=== PATIENT | female | born 1970 | race Caucasian/White ===

== ENCOUNTER 2017-06-27 18:50 | Observation (INO) ==
--- NOTE | 2017-06-27 19:32 | Emergency Department Note ---
Disposition Clinical Impression: Rectal bleed, Anemia Disposition: Admitted As Inpatient Condition: Good Time of Disposition: 21:31 (tab colev [facility] thumb region) Abdominal Pain HPI - General Chief Complaint: ED Abdominal Pain Stated Complaint: abdominal pain, rectal pain Time Seen by Provider: 06/27/17 19:00 Source: patient Mode of arrival: ambulatory Limitations: no limitations Nursing Notes Reviewed: Yes Vital Signs Reviewed: Yes - History of Present Illness HPI Narrative: Patient has been scoped previously by Dr. Coleman for rectal bleeding and a history of anemia comes emergency room after reportedly having rectal bleeding today says that she had a third of a couple blood in the toilet states that she had abdominal cramping which is then followed by bright red blood she is been doing this off and on for the past couple days today though she said the blood was low but darker in color she has had no history of diverticular disease she has had no history of colon cancer or colon polyps she denies any epigastric pain or discomfort states that she has some cramping in the rectal region she denies fever chills N this dizziness numbness tingling or weakness recent weight gain or weight loss Pt Subjective Complaint: abdominal pain Onset (ago): day(s) Consistency: intermittent Location: suprapubic Pain Severity: moderate, severe Pain Scale: 7 Quality: cramping Radiation: none Migration to: no migration Improves with: nothing Worsens with: nothing Context: history of similar episodes Associated symptoms: Reports: hematochezia. Denies: nausea, vomiting, diarrhea , fever, chills, constipation, dysuria, hematemesis, melena, hematuria, anorexia Treatments prior to arrival: none - Related Data Home Medications Medication Instructions Recorded Confirmed Albuterol Sulfate [Proair Hfa] 2 puff IH Q4H PRN 02/14/16 06/27/17 Buspirone HCl [Buspar] 10 mg PO TID 09/27/16 06/27/17 Venlafaxine XR (24 HR) [Effexor Xr] 300 mg PO DAILY 09/27/16 06/27/17 ALPRAZolam [Xanax 1 MG Tablet] 1 mg PO TID PRN 12/06/16 06/27/17 Tiotropium Br/Olodaterol HCl 2 puff IH DAILY 12/06/16 06/27/17 [Stiolto Respimat Inhal [place]] Lidocaine 1 patch TD DAILY PRN 01/09/17 06/27/17 Trazodone HCl 100 - 200 mg PO HS 01/09/17 06/27/17 metFORMIN [Glucophage] 1,000 mg PO BID 01/09/17 06/27/17 Fluticasone Propionate [Flovent 1 puff IH BID 03/24/17 06/27/17 Hfa] Gabapentin [Neurontin] 600 mg PO BID 03/24/17 06/27/17 Metoprolol [Lopressor] 25 mg PO DAILY 03/24/17 06/27/17 Omeprazole [PriLOSEC] 40 mg PO DAILY 03/24/17 06/27/17 Topiramate [Topamax] 25 mg PO BID 03/24/17 04/19/17 Previous Rx's Medication Instructions Recorded Ipratropium/Albuterol Neb [Duoneb] 3 ml IH Q6H PRN #100 inhsol 02/15/16 Atorvastatin [Lipitor] 40 mg PO HS #30 tablet 04/11/16 Aspirin 81 mg PO DAILY #30 tab.chew 06/29/17 Acetaminophen [Tylenol] 1,000 mg PO TID #30 tablet 07/03/17 Albuterol Sulfate [Albuterol 2 puff IH Q4HR #1 hfa.aer.ad 07/03/17 Inhaler] GuaiFENesin ER [Mucinex] 600 mg PO BID #10 tbbp.12hr 07/03/17 Ondansetron [Zofran] 8 mg PO Q8HR #9 tablet 07/03/17 predniSONE [Prednisone] 50 mg PO DAILY #5 tablet 07/03/17 Allergies Allergy/AdvReac Type Severity Reaction Status Date / Time clindamycin Allergy Hives Verified 06/27/17 19:06 codeine Allergy Difficulty Verified 06/27/17 19:06 Breathing NSAIDS (Non-Steroidal Allergy Difficulty Verified 06/27/17 19:06 Anti-Inflamma Breathing ketorolac [From Toradol] AdvReac Migraine Verified 06/27/17 19:06 tramadol AdvReac Vomiting Verified 06/27/17 19:06 codeine Allergy Unknown Difficulty Uncoded 06/27/17 19:06 Breathing nsaids Allergy Unknown Difficulty Uncoded 06/27/17 19:06 Breathing All systems ED: reviewed and negative except as stated. Review of Systems: As Per HPI Constitutional: Denies: fever, chills, weakness Eyes: Denies: eye pain, eye discharge ENT ED: Denies: ear pain, throat pain Cardiovascular: Denies: chest pain, palpitations Respiratory: Denies: cough, dyspnea Gastrointestinal: Reports: abdominal pain, hematochezia. Denies: nausea, vomiting, diarrhea Genitourinary: Denies: urgency, dysuria, frequency Musculoskeletal: Denies: back pain, neck pain Integumentary: Denies: rash, abrasion Neurological: Denies: headache, weakness Psychiatric: Denies: anxiety, depression Endocrine: Denies: fatigue Hematological/Lymphatic: Denies: easy bleeding Allergic/Immunologic: Denies: facial swelling Abdominal Pain PMH - Past Medical History Medical history: Reports: arthritis, asthma, CHF, COPD, coronary artery disease , diabetes, GERD, hyperlipidemia, hypertension, pulmonary embolus, other Female Surgical History: Reports: orthopedic, 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: polycystic ovary syndrome Psychiatric history: Reports: anxiety, depression - Social History Smoking status: Current every day smoker Alcohol use: Reports: none Drug use: Reports: none Physical Exam - General Limitations: no limitations General appearance: alert, in no apparent distress, obese - Head Head exam: atraumatic, normocephalic, normal inspection - Eye Eye exam: Present: normal appearance, PERRL, EOMI - ENT ENT exam: normal exam, normal oropharynx, mucous membranes moist, normal external ear exam - Neck Neck exam: Present: normal inspection, full ROM, trachea midline - Chest Chest inspection: Present: normal inspection, symmetric chest wall rise - Respiratory Respiratory exam: Present: normal lung sounds bilaterally - Cardiovascular Cardiovascular exam: Present: regular rate, normal rhythm, normal heart sounds - Abdominal Exam Abdominal exam: Present: soft, Non-Tender, normal bowel sounds. Absent: mass, pulsatile mass - Rectal Exam Refractory Manager present during exam: Yes Rectal exam: Present: normal inspection, heme (+) stool, hemorrhoids, other ( dark stool) - Extremities Exam Extremities exam: Present: normal inspection, full ROM, normal capillary refill. Absent: tenderness, pedal edema, joint swelling, calf tenderness - Expanded Lower Extremity Exam Neurovascular/Tendon exam: Present: normal capillary refill, normal fine/light touch Gait: observed and normal - Back Exam Back exam: Present: normal inspection, full ROM. Absent: muscle spasm - Neurological Exam Neurological exam: Present: alert, oriented X3, CN II-XII intact, normal gait - Psychiatric Psychiatric exam: Present: normal affect, normal mood - Skin Skin exam: Present: warm, dry, intact, normal color, rash Course Course Narrative: Patient seen and examined patient continued complaining of some abdominal cramping was given a shot of Bentyl which did seem to help patient was then transferred to [facility] for serial H&H's to make sure that her hemoglobin did not drop any farther almost likely need follow-up with endoscopy per Dr. Cervantes who has done her endoscopy in the past No rectal bleeding in the stool Vital Signs Temperature 97.2 F L 06/27/17 18:52 Pulse Rate 91 06/27/17 18:52 Respiratory Rate 17 06/27/17 18:52 Blood Pressure 122/81 06/27/17 18:52 O2 Sat by Pulse Oximetry 97 06/27/17 18:52 Temperature 97.5 F L 06/29/17 07:40 Pulse Rate 76 06/29/17 07:40 Respiratory Rate 16 06/29/17 07:40 Blood Pressure 159/63 06/29/17 07:40 O2 Sat by Pulse Oximetry 95 06/29/17 07:40 Oxygen Delivery Oxygen Delivery Room Air Abdominal Pain - Differential Diagnosis Differential Diagnosis: Likely: abdominal pain non-specific, other (Rectal bleeding hemorrhoid fissure fistula and diverticular disease) - Medical Records Medical records reviewed: Yes I reviewed the patient's medical records. - Lab Data Lab results reviewed: Yes I reviewed the patient's lab results. Result diagrams: 06/29/17 05:49 06/28/17 04:43 Lab Results 06/27/17 06/27/17 06/27/17 Range/Units 19:39 19:39 19:39 WBC 11.1 (4.3-11.1) K/mcL RBC 3.85 (3.82-4.97) M/mcL Hgb 10.9 L (11.5-15.4) g/dL Hct 33.8 L (35.3-44.9) % MCV 87.8 (83.0-100.0) fL MCH 28.3 (28.0-33.3) pg MCHC 32.2 (31.6-35.5) g/dL RDW 13.8 (11.5-14.5) % Plt Count 369 (140-400) K/mcL MPV 9.5 (9.4-12.4) fL Immature Gran % 0.4 (0-4) % Seg Neutrophils % 70.3 % Lymphocytes % 23.2 % Monocytes % 4.5 % Eosinophils % 1.3 % Basophils % 0.3 % Neutrophils # 7.8 (1.6-8.9) K/mcL Lymphocytes # 2.6 (0.6-4.6) K/mcL Monocytes # 0.5 (0.0-1.3) K/mcL Eosinophils # 0.1 (0.0-0.6) K/mcL Basophils # 0.0 (0.0-0.2) K/mcL PT 10.4 (9.4-12.1) Seconds INR 1.0 APTT 28.3 (26.0-36.0) Seconds Sodium 137 (136-145) mEq/L Potassium 3.9 (3.5-5.1) mEq/L Chloride 101 (98-107) mEq/L Carbon Dioxide 27 (23-29) mEq/L BUN 10 (6-20) mg/dL Creatinine 0.75 (0.60-1.20) mg/dL Est GFR ( Amer) > 60 (> 60) Est GFR (Non-Af Amer) > 60 (> 60) BUN/Creatinine Ratio 13 (6-26) Glucose 195 H (70-105) mg/dL Calculated Osmolality 288 (280-300) Calcium 9.3 (8.6-10.3) mg/dL Total Bilirubin 0.2 L (0.3-1.0) mg/dL AST 20 (13-39) Units/L ALT 26 (7-52) Units/L Alkaline Phosphatase 124 H (34-104) Units/L Serum Total Protein 6.9 (6.4-8.9) g/dL Albumin 3.9 (3.5-5.7) g/dL Globulin 3.0 (2.4-3.5) g/dL Albumin/Globulin Ratio 1.3 (1.1-2.2) Stool Occult Blood (Negative) 06/27/17 Range/Units 22:00 WBC (4.3-11.1) K/mcL RBC (3.82-4.97) M/mcL Hgb (11.5-15.4) g/dL Hct (35.3-44.9) % MCV (83.0-100.0) fL MCH (28.0-33.3) pg MCHC (31.6-35.5) g/dL RDW (11.5-14.5) % Plt Count (140-400) K/mcL MPV (9.4-12.4) fL Immature Gran % (0-4) % Seg Neutrophils % % Lymphocytes % % Monocytes % % Eosinophils % % Basophils % % Neutrophils # (1.6-8.9) K/mcL Lymphocytes # (0.6-4.6) K/mcL Monocytes # (0.0-1.3) K/mcL Eosinophils # (0.0-0.6) K/mcL Basophils # (0.0-0.2) K/mcL PT (9.4-12.1) Seconds INR APTT (26.0-36.0) Seconds Sodium (136-145) mEq/L Potassium (3.5-5.1) mEq/L Chloride (98-107) mEq/L Carbon Dioxide (23-29) mEq/L BUN (6-20) mg/dL Creatinine (0.60-1.20) mg/dL Est GFR ( Amer) (> 60) Est GFR (Non-Af Amer) (> 60) BUN/Creatinine Ratio (6-26) Glucose (70-105) mg/dL Calculated Osmolality (280-300) Calcium (8.6-10.3) mg/dL Total Bilirubin (0.3-1.0) mg/dL AST (13-39) Units/L ALT (7-52) Units/L Alkaline Phosphatase (34-104) Units/L Serum Total Protein (6.4-8.9) g/dL Albumin (3.5-5.7) g/dL Globulin (2.4-3.5) g/dL Albumin/Globulin Ratio (1.1-2.2) Stool Occult Blood Positive A (Negative) - Radiology Data Radiology results reviewed: Yes I reviewed the patient's radiology results. ITS Impressions Abdomen/Pelvis CT 06/27/17 19:31 IMPRESSION: Stable CT examination. No CT evidence for acute intra- abdominal process. D/ / Zechariah Gardner / Zechariah Gardner Interpreting Provider: Zechariah Gardner Critical Care Time Critical Care Time: No
[2017-06-27 19:44] LABS: Basophils % 0.3 %; Eosinophils # 0.1 K/mcL (0.0-0.6); Eosinophils % 1.3 %; Hematocrit 33.8 % (35.3-44.9); Hemoglobin 10.9 g/dL (11.5-15.4); Immature Granulocytes % 0.4 % (0-4); Lymphocytes # 2.6 K/mcL (0.6-4.6); Lymphocytes % 23.2 %; Mean Corpuscular HGB Conc 32.2 g/dL (31.6-35.5); Mean Corpuscular Hemoglobin 28.3 pg (28.0-33.3); Mean Corpuscular Volume 87.8 fL (83.0-100.0); Mean Platelet Volume 9.5 fL (9.4-12.4); Monocytes # 0.5 K/mcL (0.0-1.3); Monocytes % 4.5 %; Neutrophils # 7.8 K/mcL (1.6-8.9); Platelet Count 369 K/mcL (140-400); Red Blood Count 3.85 M/mcL (3.82-4.97); Red Cell Distribution Width 13.8 % (11.5-14.5); Segmented Neutrophils % 70.3 %
[2017-06-27 19:51] LABS: Prothrombin Time 10.4 Seconds (9.4-12.1)
[2017-06-27 19:53] LABS: Activated Partial Thrombo Time 28.3 Seconds (26.0-36.0)
[2017-06-27 20:06] LABS: Alanine Aminotransferase 26 Units/L (7-52); Albumin 3.9 g/dL (3.5-5.7); Albumin/Globulin Ratio 1.3 (1.1-2.2); Alkaline Phosphatase 124 Units/L (34-104); Aspartate Amino Transferase 20 Units/L (13-39); BUN/Creatinine Ratio 13 (6-26); Bilirubin,Total 0.2 mg/dL (0.3-1.0); Blood Urea Nitrogen 10 mg/dL (6-20); Calcium 9.3 mg/dL (8.6-10.3); Carbon Dioxide 27 mEq/L (23-29); Chloride 101 mEq/L (98-107); Glucose 195 mg/dL (70-105); Osmolality,Calculated 288 (280-300); Potassium 3.9 mEq/L (3.5-5.1); Sodium 137 mEq/L (136-145); Total Protein 6.9 g/dL (6.4-8.9); eGFR For Non-African Americans > 60 (> 60)
[2017-06-27] MEDS ORDERED: Ondansetron ODT 4 MG TAB.RAPDIS SL ONE (20:10)
[2017-06-27] MEDS ORDERED: Dicyclomine 20 MG/2 ML AMPUL IM ONE (20:39)
[2017-06-27] MEDS ORDERED: *HR* OxyCODONE Immed Rel 5 MG TABLET PO STA (22:15)
[2017-06-27] MEDS ORDERED: *HR* OxyCODONE Immed Rel 5 MG TABLET PO ONE (23:16)
[2017-06-27] MEDS ORDERED: OXYCODONE Oral CONC 10 MG/0.5 ML ORAL.SYG SL PRN (23:16)
[2017-06-27] MEDS ORDERED: Naloxone 0.4 MG/ML INJ IVP PRN (23:16)
[2017-06-27] MEDS: ALPRAZolam 1 MG TABLET PO PRN (23:47)
[2017-06-27] MEDS: 0.9 % Sodium Chloride 1,000 ML IVC SCH (23:47)
[2017-06-28 05:08] LABS: Basophils % 0.2 %; Eosinophils # 0.2 K/mcL (0.0-0.6); Eosinophils % 1.8 %; Immature Granulocytes % 0.4 % (0-4); Lymphocytes # 2.9 K/mcL (0.6-4.6); Lymphocytes % 30.8 %; Mean Corpuscular HGB Conc 31.4 g/dL (31.6-35.5); Mean Corpuscular Volume 89.1 fL (83.0-100.0); Mean Platelet Volume 9.6 fL (9.4-12.4); Monocytes # 0.5 K/mcL (0.0-1.3); Monocytes % 5.5 %; Neutrophils # 5.8 K/mcL (1.6-8.9); Platelet Count 370 K/mcL (140-400); Red Blood Count 3.93 M/mcL (3.82-4.97); Red Cell Distribution Width 13.8 % (11.5-14.5); Segmented Neutrophils % 61.3 %
[2017-06-28 05:20] LABS: Prothrombin Time 11.1 Seconds (9.4-12.1)
[2017-06-28 05:22] LABS: Activated Partial Thrombo Time 27.8 Seconds (26.0-36.0)
[2017-06-28 05:32] LABS: BUN/Creatinine Ratio 12 (6-26); Blood Urea Nitrogen 10 mg/dL (6-20); Calcium 9.2 mg/dL (8.6-10.3); Carbon Dioxide 30 mEq/L (23-29); Chloride 101 mEq/L (98-107); Glucose 210 mg/dL (70-105); Osmolality,Calculated 291 (280-300); Potassium 4.2 mEq/L (3.5-5.1); Sodium 138 mEq/L (136-145); eGFR For Non-African Americans > 60 (> 60)
[2017-06-28] MEDS: *HR* OxyCODONE Immed Rel 5 MG TABLET PO PRN ×6 (05:47→23:10)
[2017-06-28] MEDS: Ondansetron 4 MG/2 ML VIAL IVP PRN ×2 (06:22→20:04)
[2017-06-28] MEDS ORDERED: Aspirin 81 MG TAB.CHEW PO SCH (09:00)
[2017-06-28] MEDS ORDERED: Patient Taking Own Medication 1 EACH IH SCH (09:00)
[2017-06-28] MEDS: 0.9 % Sodium Chloride 1,000 ML IVC SCH (09:37)
[2017-06-28] MEDS: Gabapentin 300 MG CAPSULE PO SCH ×2 (09:38→19:51)
[2017-06-28] MEDS: *HR* Metformin 500 MG TABLET PO SCH ×2 (09:38→16:50)
[2017-06-28] MEDS: Venlafaxine XR (24 HR) 150 MG CAP.ER.24H PO SCH (09:39)
[2017-06-28] MEDS: Fluticasone Propionate Nasal 50 MCG/SPRAY BOTTLE NS SCH ×2 (09:48→22:11)
[2017-06-28] MEDS ORDERED: Fluticasone Propionate Nasal 50 MCG/SPRAY BOTTLE NS SCH (10:00)
[2017-06-28] MEDS ORDERED: *HR* OxyCODONE Immed Rel 5 MG TABLET PO PRN (12:50)
[2017-06-28] MEDS: Ipratropium/Albuterol Neb 3 ML IH PRN (12:51)
[2017-06-28] MEDS: ALPRAZolam 1 MG TABLET PO PRN ×2 (13:23→19:51)
--- NOTE | 2017-06-28 14:14 | Internal Med History&Physical ---
Date of Encounter: 06/28/17 Time of Encounter: 12:25 Assessment and Plan (1) Hematochezia Current visit: Yes Status: Acute Source not determined at this time. I told her in view of normal CT scan in the emergency room and unremarkable colonoscopy approximately 2 months ago I suspect it was a nonmalignant source of bleeding such as hemorrhoid or mucosal oozing. Will recheck labs in a.m. Anticipate discharge home tomorrow if stable. Internal Medicine - H&P: HPI Chief complaint: Rectal bleeding Admitted From: Emergency Dept Plans for Post Hospital Care: Home History of present illness: Ms. Castro is a 47 year old female who came to emergency room stating she had a significant amount of bright red blood in bowel movements over the preceding hours. She had a sharp/stabbing abdominal discomfort. She had nausea but no vomiting or diarrhea. She is evaluated in emergency room and admitted to [facility] floor for ongoing care needs. She reports she has history of GI blood loss. She had EGD and colonoscopy 04/11 for iron deficiency anemia evaluation. No significant findings were found to explain the blood loss. Her GI history is pertinent otherwise for no other disorders of liver or gallbladder or exocrine pancreas. She does have GERD. Past Med Surg Social Fam HX - Past Medical History Medical history: arthritis, asthma, CHF, COPD, coronary artery disease, diabetes , GERD, hyperlipidemia, hypertension, pulmonary embolus, other Psychiatric history: anxiety, depression - Past Surgical History Surgical History: orthopedic, other - Social History Smoking Status: Current every day smoker Packs per day: 6 to 8 cigarettes Smokeless Tobacco Status: No Alcohol use: none Drug use: none - Family History Mother Adopted: No Family Member Ethnicity: Non- Living Status: Still Living Hx Family Cardiac Disorders: Yes Hx Family Respiratory Disorders: No Hx Family Cancer: No Hx Family GI Disorders: No Hx Family Endocrine Disorder: Yes (DM) Hx Family Neuromuscular Disorders: No Hx Family Neurologic Disorders: No Hx Family HEENT Disorders: No Hx Family Autoimmune Disorders: Yes Father Adopted: No Family Member Ethnicity: Non- Living Status: Still Living Hx Family Cardiac Disorders: Yes (HTN) Hx Family Respiratory Disorders: No Hx Family Cancer: No Hx Family GI Disorders: No Hx Family Endocrine Disorder: Yes (DM) Hx Family Neuromuscular Disorders: Yes (ALZHEIMERS) Hx Family Neurologic Disorders: Yes (Alzheimers) Hx Family HEENT Disorders: No Hx Family Autoimmune Disorders: No Internal Medicine - H&P: Meds Albuterol Sulfate [Proair Hfa] 2 puff IH Q4H PRN 02/14/16 [History] Ipratropium/Albuterol Neb [Duoneb] 3 ml IH Q6H PRN #100 inhsol 02/15/16 [Rx] Aspirin 81 mg PO DAILY #30 tab.chew 04/11/16 [Rx] Atorvastatin [Lipitor] 40 mg PO HS #30 tablet 04/11/16 [Rx] Buspirone HCl [Buspar] 10 mg PO TID 09/27/16 [History] Venlafaxine XR (24 HR) [Effexor Xr] 300 mg PO DAILY 09/27/16 [History] ALPRAZolam [Xanax 1 MG Tablet] 1 mg PO TID PRN 12/06/16 [History] Tiotropium Br/Olodaterol HCl [Stiolto Respimat Inhal [place]] 2 puff IH DAILY 04/14 [History] Lidocaine 1 patch TD DAILY PRN 01/09/17 [History] Trazodone HCl 100 - 200 mg PO HS 01/09/17 [History] metFORMIN [Glucophage] 1,000 mg PO BID 01/09/17 [History] Fluticasone Propionate [Flovent Hfa] 1 puff IH BID 03/24/17 [History] Gabapentin [Neurontin] 600 mg PO BID 03/24/17 [History] Metoprolol [Lopressor] 25 mg PO DAILY 03/24/17 [History] Omeprazole [PriLOSEC] 40 mg PO DAILY 03/24/17 [History] Topiramate [Topamax] 25 mg PO BID 03/24/17 [History] 3 Allergy/AdvReac Type Severity Reaction Status Date / Time clindamycin Allergy Hives Verified 06/27/17 19:06 codeine Allergy Difficulty Verified 06/27/17 19:06 Breathing NSAIDS (Non-Steroidal Allergy Difficulty Verified 06/27/17 19:06 Anti-Inflamma Breathing ketorolac [From Toradol] AdvReac Migraine Verified 06/27/17 19:06 tramadol AdvReac Vomiting Verified 06/27/17 19:06 codeine Allergy Unknown Difficulty Uncoded 06/27/17 19:06 Breathing nsaids Allergy Unknown Difficulty Uncoded 06/27/17 19:06 Breathing All Systems PM: A 10-system review of systems was performed and is negative for pertinent findings except as documented above in the HPI. Review of systems: Gen.: She states her weight has been stable past few months Cardiovascular: She has history of hypertension. She claims a diagnosis of CHF but an echocardiogram 12/06/2016 showed LVEF 60-65% with indeterminate diastolic function and no significant valvular abnormality seen. She claims she had a pulmonary embolism 2014 and was on Xarelto briefly. The etiology of the PE was not determined to her knowledge. Respiratory: She has smoked since age 16 up to 1 pack per day. She had PFTs 02/2017 which showed FEV1/FVC of 85%. The FVC was 65% of predicted. There was improvement in FEV1 postbronchodilator. Her MVV was decreased to 59% predicted. Residual volume was elevated 128% predicted. DLCO corrected was 64% . She has a diagnosis of BESSIE and wears BiPAP at at bedtime GI: As per history of present illness : She denies hematuria dysuria or kidney stones Neurologic: She denies large distribution strokes or seizures. Endocrine: She was diagnosed with DM 2 approximately 2013. She has hyperlipidemia but denies thyroid disease Hematology/oncology: She has history of anemia. She denies internal malignancies or other blood disorders Psychiatric: She has anxiety and depression but denies other mental health issues Muscle skeletal: She denies arthritis gout or other bone joint or muscle disorders. - Constitutional Vitals: Temp Pulse Resp BP Pulse Ox 98.4 F 64 18 107/66 97 06/28/17 10:41 06/28/17 10:41 06/28/17 12:53 06/28/17 10:41 06/28/17 12:53 Exam: General: She is a well-developed obese female lying in bed who appears in no severe distress. She does appear anxious. HEENT: Head is atraumatic and normal cephalic. Eyes: EOMI. There is no scleral icterus. Mouth: Mucosa is moist. Neck: Supple and nontender. There is no thyromegaly or adenopathy noted. Heart: Regular without murmurs gallops or ectopics Lungs: No wheezes or crackles are heard. Abdomen: Soft and nontender. She has a large abdomen. No masses or guarding are noted. Extremities: There is no cyanosis edema or clubbing noted. Dorsalis pedis and posterior tibial pulses are trace to 1+ palpable bilaterally. Neurologic: Mental status: She is talkative and a good historian. Cranial nerves: Smile is symmetric. Forehead wrinkles bilaterally. Tongue protrudes midline. EOMI. Motor: There is no pronator drift. Cerebellar: Finger to nose is intact bilaterally. Skin: Warm and dry Internal Med - H&P Results - Labs CBC & Chem 7: 06/28/17 04:43 06/28/17 04:43 Labs: Short CBC 06/28/17 Range/Units 04:43 WBC 9.5 (4.3-11.1) K/mcL Hgb 11.0 L (11.5-15.4) g/dL Hct 35.0 L (35.3-44.9) % Plt Count 370 (140-400) K/mcL Neutrophils # 5.8 (1.6-8.9) K/mcL BMP 06/28/17 04:43 Sodium 138 Potassium 4.2 Chloride 101 Carbon Dioxide 30 H BUN 10 Creatinine 0.83 Glucose 210 H Calcium 9.2
[2017-06-28] MEDS: 0.45 % Sodium Chloride w/KCl 20 MEQ/1,000 ML MLS IVC SCH ×2 (14:29→23:10)
--- NOTE | 2017-06-28 14:38 | Electrocardiograph Report ---
[address] [place], [place] [address] Test Date: 2017-06-28 Pat Name: Sherry Castro Department: [id number] Room: [facility] Gender: F Addictions Recovery Specialist: [id number] : 1970 Requested By: Rodolfo Bernal Order Number: [id number] Reading MD: Ernie Benoit DO Measurements Intervals Gill Rate: 79 P: 27 FL: 194 QRS: -2 QRSD: 90 T: 45 QT: 357 QTc: 391 Interpretive Statements SINUS RHYTHM MODERATE VOLTAGE CRITERIA FOR LVH, CONSIDER NORMAL VARIANT MODERATE T-WAVE ABNORMALITY, CONSIDER LATERAL ISCHEMIA Electronically Signed On 06-28-2017 14:35:57 EST by Ernie Benoit DO
[2017-06-29] MEDS: *HR* OxyCODONE Immed Rel 5 MG TABLET PO PRN ×4 (01:05→11:39)
[2017-06-29] MEDS: Ipratropium/Albuterol Neb 3 ML IH PRN (01:50)
[2017-06-29 06:11] LABS: Basophils % 0.3 %; Eosinophils # 0.1 K/mcL (0.0-0.6); Eosinophils % 1.4 %; Hematocrit 33.1 % (35.3-44.9); Hemoglobin 10.3 g/dL (11.5-15.4); Immature Granulocytes % 0.4 % (0-4); Lymphocytes # 2.5 K/mcL (0.6-4.6); Lymphocytes % 27.3 %; Mean Corpuscular HGB Conc 31.1 g/dL (31.6-35.5); Mean Corpuscular Volume 89.9 fL (83.0-100.0); Mean Platelet Volume 9.8 fL (9.4-12.4); Monocytes # 0.6 K/mcL (0.0-1.3); Monocytes % 6.5 %; Neutrophils # 5.9 K/mcL (1.6-8.9); Platelet Count 345 K/mcL (140-400); Red Blood Count 3.68 M/mcL (3.82-4.97); Red Cell Distribution Width 14.1 % (11.5-14.5); Segmented Neutrophils % 64.1 %
[2017-06-29 07:41] VITALS: BP 159/63
[2017-06-29] MEDS: Venlafaxine XR (24 HR) 150 MG CAP.ER.24H PO SCH (08:13)
[2017-06-29] MEDS: Gabapentin 300 MG CAPSULE PO SCH (08:13)
[2017-06-29] MEDS: *HR* Metformin 500 MG TABLET PO SCH (08:13)
--- NOTE | 2017-06-29 11:14 | Discharge Summary ---
Date of Encounter: 06/29/17 Time of Encounter: 11:00 - Discharge Diagnosis (1) Hematochezia Priority: Primary Status: Acute - Discharge Medications Home Medications: Albuterol Sulfate [Proair Hfa] 2 puff IH Q4H PRN 02/14/16 [History] Ipratropium/Albuterol Neb [Duoneb] 3 ml IH Q6H PRN #100 inhsol 02/15/16 [Rx] Atorvastatin [Lipitor] 40 mg PO HS #30 tablet 04/11/16 [Rx] Buspirone HCl [Buspar] 10 mg PO TID 09/27/16 [History] Venlafaxine XR (24 HR) [Effexor Xr] 300 mg PO DAILY 09/27/16 [History] ALPRAZolam [Xanax 1 MG Tablet] 1 mg PO TID PRN 12/06/16 [History] Tiotropium Br/Olodaterol HCl [Stiolto Respimat Inhal [place]] 2 puff IH DAILY 04/14 [History] Lidocaine 1 patch TD DAILY PRN 01/09/17 [History] Trazodone HCl 100 - 200 mg PO HS 01/09/17 [History] metFORMIN [Glucophage] 1,000 mg PO BID 01/09/17 [History] Fluticasone Propionate [Flovent Hfa] 1 puff IH BID 03/24/17 [History] Gabapentin [Neurontin] 600 mg PO BID 03/24/17 [History] Metoprolol [Lopressor] 25 mg PO DAILY 03/24/17 [History] Omeprazole [PriLOSEC] 40 mg PO DAILY 03/24/17 [History] Topiramate [Topamax] 25 mg PO BID 03/24/17 [History] Aspirin 81 mg PO DAILY #30 tab.chew 06/29/17 [Rx] Allergies/Adverse Reactions: 3 Allergy/AdvReac Type Severity Reaction Status Date / Time clindamycin Allergy Hives Verified 06/27/17 19:06 codeine Allergy Difficulty Verified 06/27/17 19:06 Breathing NSAIDS (Non-Steroidal Allergy Difficulty Verified 06/27/17 19:06 Anti-Inflamma Breathing ketorolac [From Toradol] AdvReac Migraine Verified 06/27/17 19:06 tramadol AdvReac Vomiting Verified 06/27/17 19:06 codeine Allergy Unknown Difficulty Uncoded 06/27/17 19:06 Breathing nsaids Allergy Unknown Difficulty Uncoded 06/27/17 19:06 Breathing Procedures/tests Complete & Pending: Procedures Performed prior 72 hours Category Date Time Status ECG 12 lead ECG [ECG] Stat Y 06/28/17 01:56 Completed Date of admission: 06/27/17 22:06 Primary care physician: Gardenia Vital MD - Patient Status Disposition: Home, Self-Care Condition: Good Functional capacity at discharge: independent ambulation Overall status at discharge: patient is progressing back to baseline - Discharge Instructions Follow Up With: Gardenia Vital MD [Primary Care Provider] - 1 week - Diet and Activity Activity: resume usual activities as tolerated Diet: advance to your usual diet Hospital course: Ms. Castro is a 47 year old female who came to emergency room stating she had a significant amount of bright red blood in bowel movements over the preceding hours. She had a sharp/stabbing abdominal discomfort. She had nausea but no vomiting or diarrhea. She is evaluated in emergency room and admitted to [facility] for ongoing care needs. Initial orders were written by the emergency room physician. I saw her on June 28 and performed a history and physical. She had no significant bleeding after admission. Her hemoglobin was minimally decreased to 10.3 on June 29. She had active bowel sounds and no significant abdominal tenderness on exam. WBC remained normal with no evidence of left shift. The etiology of her bleeding was not determined with certainty but I felt it was likely mucosal or hemorrhoid etc. I recommended she remain off aspirin for 3 days. I instructed her to return to emergency room if significant bleeding recurs. I recommended she use OTC Tylenol for pain. She will follow with her PCP within one week. - Time Spent with Patient Total time spent providing and/or coordinating discharge services: - Constitutional Vitals: Temp Pulse Resp BP Pulse Ox 97.5 F L 76 16 159/63 95 06/29/17 07:40 06/29/17 07:40 06/29/17 07:40 06/29/17 07:40 06/29/17 07:40
[2017-06-29] MEDS: Fluticasone Propionate Nasal 50 MCG/SPRAY BOTTLE NS SCH (11:41)
[2017-06-29] MEDS: ALPRAZolam 1 MG TABLET PO PRN (12:14)
== END 2017-06-29 13:36 | disposition home or self-care (01) ==
LOC: EMEROOPIK 18:50 → INPPIK 18:50
PROVIDERS: ADMIT Internal Medicine; ATTEND Internal Medicine

== ENCOUNTER 2019-12-02 19:39 | Observation (INO) ==
[2019-12-02] MEDS ORDERED: Ondansetron 4 MG/2 ML VIAL IVP ONE (19:46)
[2019-12-02] MEDS ORDERED: 0.9 % Sodium Chloride 500 ML IVC ONE (19:46)
[2019-12-02 20:01] LABS: Basophils % 0.2 %; Eosinophils # 0.2 K/mcL (0.0-0.6); Eosinophils % 1.5 %; Hemoglobin 11.5 g/dL (11.5-15.4); Immature Granulocytes % 0.3 % (0-4); Lymphocytes # 3.7 K/mcL (0.6-4.6); Lymphocytes % 33.8 %; Mean Corpuscular HGB Conc 32.9 g/dL (31.6-35.5); Mean Corpuscular Hemoglobin 29.5 pg (28.0-33.3); Mean Corpuscular Volume 89.7 fL (83.0-100.0); Mean Platelet Volume 9.8 fL (9.4-12.4); Monocytes # 0.7 K/mcL (0.0-1.3); Monocytes % 6.2 %; Neutrophils # 6.3 K/mcL (1.6-8.9); Platelet Count 410 K/mcL (140-400); Red Cell Distribution Width 14.5 % (11.5-14.5); White Blood Count 10.9 K/mcL (4.3-11.1)
[2019-12-02] MEDS: Nitroglycerin 0.4 MG TAB.SUBL SL PRN ×3 (20:01→20:16)
[2019-12-02 20:12] LABS: Prothrombin Time 11.4 Seconds (9.4-12.1)
[2019-12-02 20:15] LABS: Activated Partial Thrombo Time 28.4 Seconds (26.0-36.0)
[2019-12-02] MEDS ORDERED: Isovue-370 500 ML BOTTLE IVP ONE (20:17)
[2019-12-02 20:19] LABS: BUN/Creatinine Ratio 12 (6-26); Blood Urea Nitrogen 13 mg/dL (6-20); Calcium 9.5 mg/dL (8.6-10.3); Carbon Dioxide 28 mEq/L (23-29); Chloride 98 mEq/L (98-107); Glucose 128 mg/dL (70-105); Osmolality,Calculated 284 (280-300); Potassium 3.9 mEq/L (3.5-5.1); Sodium 136 mEq/L (136-145); eGFR For African Americans > 60 (> 60); eGFR For Non-African Americans 54 (> 60)
[2019-12-02 20:20] LABS: Troponin I < 0.03 ng/mL (< 0.04)
[2019-12-02] MEDS ORDERED: *HR* Enoxaparin 150 MG/ML SYRINGE SQ STA (20:34)
[2019-12-02] MEDS ORDERED: *HR* LORazepam 2 MG/ML VIAL IVP ONE (21:33)
[2019-12-02] MEDS ORDERED: Ziprasidone 20 MG in Water for inj. (sterile) 1 ML IM ONE (22:04)
[2019-12-03] MEDS ORDERED: Ondansetron 4 MG/2 ML VIAL IVP PRN (00:57)
[2019-12-03] MEDS ORDERED: Nitroglycerin 0.4 MG TAB.SUBL SL PRN (00:57)
[2019-12-03] MEDS ORDERED: MOM Conc 10 ML UD.LIQ PO PRN (00:57)
[2019-12-03] MEDS ORDERED: Mag Hydrox/Al Hydrox/Simeth 30 ML UDC PO PRN (00:57)
[2019-12-03] MEDS ORDERED: *HR* OxyCODONE/APAP 5/325 TABLET PO PRN (00:57)
[2019-12-03] MEDS ORDERED: Insulin LISPRO 300 UNITS/3 ML VIAL SQ SCH ×3 (00:57→21:00)
[2019-12-03] MEDS ORDERED: Naloxone 0.4 MG/ML INJ IVP PRN (00:57)
[2019-12-03] MEDS ORDERED: Dextrose Gel 15 GM/37.5 ML TUBE PO PRN ×2 (00:57)
[2019-12-03] MEDS ORDERED: *HR* Dextrose 50 % in Water (Vial) 50 ML VIAL IVP PRN (00:57)
[2019-12-03] MEDS ORDERED: D5% in Water 1,000 ML IVC PRN (00:57)
[2019-12-03] MEDS ORDERED: traZODone 50 MG TABLET PO PRN (00:57)
[2019-12-03] MEDS: 0.9 % Sodium Chloride 1,000 ML IVC SCH ×2 (02:18→10:09)
[2019-12-03] MEDS ORDERED: GlipiZIDE 5 MG TABLET PO SCH (08:00)
[2019-12-03] MEDS ORDERED: Acetaminophen 325 MG TABLET PO PRN (08:36)
[2019-12-03] MEDS: Insulin LISPRO 300 UNITS/3 ML VIAL SQ SCH ×2 (08:49→12:01)
[2019-12-03] MEDS ORDERED: Ziprasidone 20 MG CAPSULE PO SCH (09:00)
[2019-12-03] MEDS ORDERED: Aspirin Enteric Coated 81 MG Tablet PO SCH (09:00)
[2019-12-03] MEDS ORDERED: *HR* SitaGLIPtin 25 MG TABLET PO SCH (09:00)
[2019-12-03] MEDS ORDERED: Venlafaxine XR (24 HR) 150 MG CAP.ER.24H PO SCH (09:00)
[2019-12-03] MEDS ORDERED: *HR* Heparin 5,000 UNIT/ML VIAL SQ SCH (09:05)
[2019-12-03 09:08] LABS: Alanine Aminotransferase 20 Units/L (7-52); Albumin 3.5 g/dL (3.5-5.7); Albumin/Globulin Ratio 1.2 (1.1-2.2); Alkaline Phosphatase 110 Units/L (34-104); Aspartate Amino Transferase 15 Units/L (13-39); BUN/Creatinine Ratio 11 (6-26); Bilirubin,Total 0.4 mg/dL (0.3-1.0); Blood Urea Nitrogen 11 mg/dL (6-20); Calcium 8.9 mg/dL (8.6-10.3); Carbon Dioxide 23 mEq/L (23-29); Chloride 101 mEq/L (98-107); Glucose 168 mg/dL (70-105); Osmolality,Calculated 291 (280-300); Sodium 139 mEq/L (136-145); Total Protein 6.5 g/dL (6.4-8.9); eGFR For African Americans > 60 (> 60); eGFR For Non-African Americans 59 (> 60)
[2019-12-03 10:20] VITALS: BP 116/60
== END 2019-12-03 13:55 | disposition other institution (70) ==
LOC: INPPIK 19:39 → EMEROOPIK 19:39 → INPPIK 12-03 00:43
PROVIDERS: ADMIT Family Medicine; ATTEND Family Medicine